=== PATIENT | female | born 1985 | race Two or more races ===

== ENCOUNTER 2017-10-16 19:45 | Emergency (ER) | payer SELFPAY ==
[2017-10-16 20:05] LABS: URINE HCG POC HCG NEGATIVE (Negative)
[2017-10-16 20:22] LABS: ADD MAN DIFF? NO
[2017-10-16 20:25] LABS: BASO % 0 % (0-3); EOS # 0.1 x10^3/uL (0.0-0.7); EOS % 2 % (0-3); HEMATOCRIT 38.3 % (36.0-47.0); HEMOGLOBIN 12.9 g/dL (12.0-15.5); LYMPH # 3.6 x10^3/uL (1.0-4.8); LYMPH % 52 % (24-48); MEAN CORPUSCULAR HEMOGLOBIN 29 pg (25-35); MEAN CORPUSCULAR HGB CONC 34 g/dL (31-37); MEAN CORPUSCULAR VOLUME 86 fL (79-100); MONO # 0.4 x10^3/uL (0.0-1.1); MONO % 6 % (0-9); NEUT # 2.7 x10^3uL (1.8-7.7); NEUT % 40 % (31-73); PLATELET COUNT 247 x10^3/uL (140-400); RED BLOOD COUNT 4.43 x10^6/uL (3.50-5.40); RED CELL DISTRIBUTION WIDTH 13.1 % (11.5-14.5); WHITE BLOOD COUNT 6.8 x10^3/uL (4.0-11.0)
[2017-10-16] MEDS: KETOROLAC 15 MG/ML VIAL. IV ×2 (20:31)
[2017-10-16] MEDS: IV NORMAL SALINE 1000ML BAG 1,000 ML IV ×2 (20:31)
[2017-10-16] MEDS: ONDANSETRON PF 4 MG/2 ML VIAL. IV ×2 (20:31)
[2017-10-16 20:32] LABS: BILIRUBIN,URINE NEGATIVE (NEG); CLARITY,URINE CLEAR; COLOR,URINE YELLOW; GLUCOSE,URINE NEGATIVE (NEG); NITRITE,URINE NEGATIVE (NEG); PH,URINE 8.5; PROTEIN,URINE NEGATIVE (NEG-TRACE)
[2017-10-16 20:38] LABS: ANION GAP 10 (6-14); BLOOD UREA NITROGEN 10 mg/dL (7-20); BUN/CREATININE RATIO 10 (6-20); CALCIUM 9.1 mg/dL (8.5-10.1); CARBON DIOXIDE 26 mmol/L (21-32); CHLORIDE 106 mmol/L (98-107); GFR 64.7; GLUCOSE 93 mg/dL (70-99); POTASSIUM 3.4 mmol/L (3.5-5.1); SODIUM 142 mmol/L (136-145)
[2017-10-16 20:44] LABS: ALBUMIN 3.8 g/dL (3.4-5.0); ALK PHOS 53 U/L (46-116); ALT (SGPT) 23 U/L (14-59); AST (SGOT) 17 U/L (15-37); LIPASE 178 U/L (73-393); TOTAL BILIRUBIN 0.4 mg/dL (0.2-1.0); TOTAL PROTEIN 7.6 g/dL (6.4-8.2)
[2017-10-16 20:46] LABS: BACTERIA,URINE 0 /HPF (0-FEW); RBC,URINE 0 /HPF (0-2); SQUAMOUS EPITHELIAL CELL,UR MOD /LPF
== END 2017-10-17 00:51 | disposition home or self-care (01) ==
LOC: ER 10-17 00:51
DX: K80.50 Calculus of bile duct without cholangitis or cholecystitis without obstruction (principal)
CPT/HCPCS: 36415; 76705; 80053; 81001; 81025; 83690; 85025; 96361; 96374; 96375; 99285-25; J1885; J2405; J7030

== ENCOUNTER 2018-01-23 16:39 | Emergency (ER) | payer SELFPAY ==
[2018-01-23 17:02] LABS: URINE HCG POC HCG NEGATIVE (Negative)
[2018-01-23 17:03] LABS: BILIRUBIN,URINE NEGATIVE (NEG); CLARITY,URINE CLEAR; COLOR,URINE YELLOW; GLUCOSE,URINE NEGATIVE (NEG); NITRITE,URINE NEGATIVE (NEG); PROTEIN,URINE NEGATIVE (NEG-TRACE); UROBILINOGEN,URINE 0.2 mg/dL (0.2 mg/dL)
[2018-01-23 17:08] LABS: BACTERIA,URINE FEW /HPF (0-FEW); SQUAMOUS EPITHELIAL CELL,UR MANY /LPF
[2018-01-23] MEDS: LIDO:MAALOX 1:1 20 ML SINGLE DOSE. SWSW (17:20)
== END 2018-01-23 17:26 | disposition home or self-care (01) ==
LOC: ER 16:39
DX: K29.50 Unspecified chronic gastritis without bleeding (principal)
CPT/HCPCS: 81001; 81025; 87086; 99284

== ENCOUNTER 2020-05-29 21:10 | Emergency (ER) | payer SELFPAY ==
[~2020-05-29] VITALS: Ht 154.9 cm; Wt 71.0 kg
[~2020-05-29 21:10] MED LIST: HYDR30CR61 TP; HYOS0.1265 SL; NITR100C62 PO; ONDA4TAB10 SL; RANI300T3 PO
--- NOTE | 2020-05-29 21:44 | PHYS DOC ---
Past Medical History Past Medical History: No Pertinent History Additional Past Medical Histor: PREECLAMPSIA (ALICE WEINBERG BRICKLAYER APPRENTICE) Past Surgical History: (ALICE WEINBERG BRICKLAYER APPRENTICE) Smoking Status: Never Smoker Alcohol Use: None Drug Use: None (ALICE WEINBERG APRN) General Adult EDM: Chief Complaint: ANXIETY/PANIC ATTACK HPI: HPI: Patient is a 34 year old female who presents with was just sitting not doing anything specific when she began feeling a heat over the left side of her head, sharp stabbing pain in the left side of the head, numbness and bilateral blurred vision. Patient states this is the worst headache she is ever had. Patient states that she began having some anxiety. She denies radiation of the pain. Patient states she has a history of preeclampsia. She states she takes no medications daily. She denies smoking, drug use, alcohol use. Patient denies focal weakness, chest pain, shortness of air, abdominal pain, nausea, vomiting, diarrhea, fever, cough, loss of vision. (ALICE WEINBERG BRICKLAYER APPRENTICE) Review of Systems: Review of Systems: Constitutional: Denies fever or chills. [] Eyes: Positive for bilateral blurred change in visual acuity. [] HENT: Denies nasal congestion or sore throat. [] Respiratory: Denies cough or shortness of breath. [] Cardiovascular: Denies chest pain or edema. [] GI: Denies abdominal pain, nausea, vomiting, bloody stools or diarrhea. [] : Denies dysuria. [] Musculoskeletal: Denies back pain or joint pain. Positive for left back of neck slight pain [] Integument: Denies rash. [] Neurologic: Positive for headache, positive for dizziness, denies focal weakness or sensory changes. [] Endocrine: Denies polyuria or polydipsia. [] Lymphatic: Denies swollen glands. [] Psychiatric: Denies depression. Positive for anxiety. [] (ALICE WEINBERG BRICKLAYER APPRENTICE) Heart Score: Risk Factors: Risk Factors: DM, Current or recent (<one month) smoker, HTN, HLP, family history of CAD, obesity. Risk Scores: Score 0 - 3: 2.5% MACE over next 6 weeks - Discharge Home Score 4 - 6: 20.3% MACE over next 6 weeks - Admit for Clinical Observation Score 7 - 10: 72.7% MACE over next 6 weeks - Early Invasive Strategies (ALICE WEINBERG BRICKLAYER APPRENTICE) Allergies: Allergies: Allergies Coded Allergies Type Severity Reaction Last Updated Verified No Known Drug Allergies 07/19/17 No (ALICE WEINBERG APRN) Physical Exam: PE: Constitutional: Well developed, well nourished, no acute distress, non-toxic appearance. [] HENT: Normocephalic, atraumatic, bilateral external ears normal, oropharynx moist, no oral exudates, nose normal. [] Eyes: PERRLA, EOMI, conjunctiva normal, no discharge. [] Neck: Normal range of motion, no tenderness, supple, no stridor. [] Cardiovascular:Heart rate regular rhythm, no murmur [] Lungs & Thorax: Bilateral breath sounds clear to auscultation [] Abdomen: Bowel sounds normal, soft, no tenderness, no masses, no pulsatile masses. [] Skin: Warm, dry, no erythema, no rash. [] Back: No tenderness, no CVA tenderness. [] Extremities: No tenderness, no cyanosis, no clubbing, ROM intact, no edema. [] Neurologic: Alert and oriented X 3, normal motor function, normal sensory function, no focal deficits noted. [] Psychologic: Anxious, affect normal, judgement normal, mood normal. [] (ALICE WEINBERG BRICKLAYER APPRENTICE) PE: Alert and oriented, no meningeal signs, moves all extremities no focal weakness or numbness. (ALIVIA TELLEZ MD) Current Patient Data: Labs: Laboratory Tests Test 05/29/20 21:55 05/29/20 22:45 05/29/20 23:04 White Blood Count 5.3 x10^3/uL Red Blood Count 4.34 x10^6/uL Hemoglobin 12.8 g/dL Hematocrit 37.2 % Mean Corpuscular Volume 86 fL Mean Corpuscular Hemoglobin 30 pg Mean Corpuscular Hemoglobin Concent 34 g/dL Red Cell Distribution Width 12.4 % Platelet Count 228 x10^3/uL Neutrophils (%) (Auto) 39 % Lymphocytes (%) (Auto) 53 % Monocytes (%) (Auto) 7 % Eosinophils (%) (Auto) 2 % Basophils (%) (Auto) 0 % Neutrophils # (Auto) 2.1 x10^3/uL Lymphocytes # (Auto) 2.8 x10^3/uL Monocytes # (Auto) 0.4 x10^3/uL Eosinophils # (Auto) 0.1 x10^3/uL Basophils # (Auto) 0.0 x10^3/uL Prothrombin Time 13.3 SEC Prothromb Time International Ratio 1.1 Sodium Level 142 mmol/L Potassium Level 3.2 mmol/L Chloride Level 105 mmol/L Carbon Dioxide Level 27 mmol/L Anion Gap 10 Blood Urea Nitrogen 10 mg/dL Creatinine 1.1 mg/dL Estimated GFR (Cockcroft-Gault) 57.2 BUN/Creatinine Ratio 9 Glucose Level 117 mg/dL Calcium Level 8.8 mg/dL Total Bilirubin 0.6 mg/dL Aspartate Amino Transf (AST/SGOT) 24 U/L Alanine Aminotransferase (ALT/SGPT) 26 U/L Alkaline Phosphatase 69 U/L Total Protein 7.3 g/dL Albumin 3.8 g/dL Albumin/Globulin Ratio 1.1 Urine Opiates Screen Neg Urine Methadone Screen Neg Urine Barbiturates Neg Urine Phencyclidine Screen Neg Urine Amphetamine/Methamphetamine Neg Urine Benzodiazepines Screen Neg Urine Cocaine Screen Neg Urine Cannabinoids Screen Neg Urine Ethyl Alcohol Neg Bedside Urine HCG, Qualitative Hcg negative Current Medications Medications (Trade) Dose Ordered Sig/Tisha Route PRN Reason Start Time Stop Time Status Last Admin Dose Admin Prochlorperazine Edisylate (Compazine) 10 mg 1X ONCE IV 05/29/20 21:45 05/29/20 21:46 DC 05/29/20 21:57 Dexamethasone Sodium Phosphate (Decadron) 10 mg 1X ONCE IV 05/29/20 21:45 05/29/20 21:46 DC 05/29/20 21:57 Fentanyl Citrate (Fentanyl 2ml Vial) 25 mcg 1X ONCE IVP 05/29/20 21:45 05/29/20 21:46 DC 05/29/20 21:56 Diphenhydramine HCl (Benadryl) 25 mg 1X ONCE IVP 05/29/20 21:45 05/29/20 21:46 DC 05/29/20 21:57 Ketorolac Tromethamine (Toradol 15mg Vial) 15 mg 1X ONCE IVP 05/30/20 00:00 05/30/20 00:01 DC 05/30/20 00:08 Vital Signs: Vital Signs Date Time Temp Pulse Resp B/P (MAP) Pulse Ox O2 Delivery O2 Flow Rate FiO2 05/29/20 21:56 22 Room Air 05/29/20 21:22 98.2 98 22 140/77 (98) 100 Room Air 98.2 (ALIVIA TELLEZ MD) EKG: EKG: [] (ALICE WEINBERG APRN) Radiology/Procedures: Radiology/Procedures: [] (ALICE WEINBERG APRN) Radiology/Procedures: [facility] [address] [place] [address] IMAGING REPORT Signed PATIENT: GRISELDA MENDENHALL DACCOUNT: [id number] : 1985 LOCATION: ER AGE: 34 SEX: F EXAM STATUS: REG ER ORD. PHYSICIAN: ALICE WEINBERG APRN REASON: HEADACHE PROCEDURE: CT HEAD WO CONTRAST CT HEAD INDICATION: Headache COMPARISON: None Available. Exposure: One or more of the following individualized dose reduction techniques were utilized for this examination: 1. Automated exposure control 2. Adjustment of the mA and/or kV according to patient size 3. Use of iterative reconstruction technique TECHNIQUE: 5 mm contiguous axial images were obtained from the skull base to the vertex in both bone and soft tissue algorithm. FINDINGS: No abnormal attenuation within the brain parenchyma. No evidence of acute intracranial hemorrhage. No extra-axial fluid collections. No mass effect or midline shift. Ventricular size is appropriate. Basal cisterns are patent. No fractures identified.Schuster-white differentiation is preserved.Globes and orbits are within normal limits. Paranasal sinuses and mastoid air cells are clear. IMPRESSION: No acute intracranial findings. Electronically signed by: Everton Castaneda MD (05/29/2020 11:30 PM) [id number] DICTATED and SIGNED BY: EVERTON CASTANEDA MD DATE: 05/29/20 457 (ALIVIA TELLEZ MD) Course & Med Decision Making: Course & Med Decision Making Pertinent Labs and Imaging studies reviewed. (See chart for details) Alert and oriented x4. Speaks in full clear sentences. Ambulatory with a steady gait. PERRLA. Moving all extremities equally with equal strengths. States that she does have slight pain to her left side of her neck towards the back. She does not have any tenderness to her head with palpation. Patient was given fentanyl, Decadron, Compazine, Benadryl and she states her pain is down to a 6 out of 10. She states that the only symptom she has is some tingling sensation to that left side of her head. She reports that her pain is down to a 6 and she is feeling better. She denies any other symptoms at this time. Patient remains alert and oriented with stable vital signs. 2328 and patient is signed off to Dr. Tellez. [] (ALICE WEINBERG APRN) Course & Med Decision Making I have personally interviewed and examined patient. All charts, labs and imaging studies were reviewed. I agreed with the PA/FIELD IRRIGATION WORKER's findings, exam and plan of care 34-year-old female presents with a headache and anxiety after the headache began. Patient has a normal neurological exam and no meningeal signs and a negative head CT and symptoms are much better. Doubt intracranial hemorrhage. On my reassessment at 12:10 AM patient states her headache is much improved. CT is negative and she will get Toradol and patient stable for discharge return precautions given. (ALIVIA TELLEZ MD) Dragon Disclaimer: Dragon Disclaimer: This electronic medical record was generated, in whole or in part, using a voice recognition dictation system. (ALICE WEINBERG APRN) Departure Departure Impression: Primary Impression: Headache Disposition: 01 HOME, SELF-CARE Condition: STABLE Referrals: NO PCP (PCP) ALEXANDR STEELE MD 2-3 DAYS Patient Instructions: General Headache Without Cause Additional Instructions: EMERGENCY DEPARTMENT GENERAL DISCHARGE INSTRUCTIONS THANK YOU for coming to [facility] Emergency Department (ED) today and trusting us with your care. We trust that you had a positive experience in our Emergency Department. If you wish to speak to the department Management you can contact the history department chair at . YOUR FOLLOW UP INSTRUCTIONS ARE FOLLOWS: Do you have a private doctor? If you do not have a private doctor, please ask for a resource list of physicians or clinics that may be able to assist you with follow up care. The Emergency Physician has interpreted your x-rays. The X-ray specialist will also review them. If there is a change in the findings you will be notified in 48 hours when at all possible. A lab test or lab culture may have been done, your results will be reviewed and you will be notified if you need a change in treatment. ADDITIONAL INSTRUCTIONS AND INFORMATION Your care today has been supervised by a physician who is specially trained in emergency care. Many problems require more than one evaluation for a complete diagnosis and treatment. We recommend that you schedule your follow up appointment as recommended to ensure complete treatment of your illness or injury. If you are unable to obtain follow up care and continue to have a problem, or if your condition worsens we recommend that you return to the ED. We are not able to safely determine your condition over the phone nor are we able to give sound medical advice over the phone. For these safety reasons, if you call for medical advice we will ask you to come to the ED for further evaluation If you have any questions regarding these discharge instructions please call the ED at . SAFETY INFORMATION In the interest of safety, wellness, and injury prevention; we encourage you to wear your seatbelt, if you smoke; quit smoking, and we encourage your family to use protective helmet for bicycling and other sporting events that present an increased risk for head injury. IF YOUR SYMPTOMS WORSEN OR NEW SYMPTOMS DEVELOP, OR YOU HAVE CONCERNS ABOUT YOUR CONDITION; OR IF YOUR CONDITION WORSENS WHILE YOU ARE WAITING FOR YOUR FOLLOW UP APPOINTMENT; EITHER CONTACT YOUR PRIMARY CARE DOCTOR, THE PHYSICIAN WHOSE NAME AND NUMBER YOU WERE GIVEN, OR RETURN TO THE ED IMMEDIATELY. Scripts Prochlorperazine Maleate (Compazine) 10 Mg Tablet 1 TAB PO Q6HRS PRN for HEADACHE for 15 Days, #60 TAB 0 Refills Prov: ALIVIA TELLEZ MD 05/30/20 Justicifation of Admission Dx: Justifications for Admission: Justification of Admission Dx: N/A (ALICE WEINBERG APRN) Justification of Admission Dx: N/A (ALIVIA TELLEZ MD) ALICE WEINBERG APRN May 29, 2020 21:44 ALIVIA TELLEZ MD May 30, 2020 00:14
[2020-05-29] MEDS ORDERED: PROCHLORPERAZINE 10 MG/2 ML VIAL. IV ONE (21:45)
[2020-05-29] MEDS ORDERED: fentaNYL PF VIAL 100 MCG/2 ML VIAL IVP ONE (21:45)
[2020-05-29] MEDS ORDERED: diphenhydrAMINE 50 MG/ML VIAL IVP ONE (21:45)
[2020-05-29] MEDS ORDERED: DEXAMETHASONE SOD PHOS 20 MG/5 ML VIAL. IV ONE (21:45)
[2020-05-29 22:14] LABS: BASO % 0 % (0-3); EOS # 0.1 x10^3/uL (0.0-0.7); EOS % 2 % (0-3); HEMATOCRIT 37.2 % (36.0-47.0); HEMOGLOBIN 12.8 g/dL (12.0-15.5); LYMPH # 2.8 x10^3/uL (1.0-4.8); LYMPH % 53 % (24-48); MEAN CORPUSCULAR HEMOGLOBIN 30 pg (25-35); MEAN CORPUSCULAR HGB CONC 34 g/dL (31-37); MEAN CORPUSCULAR VOLUME 86 fL (79-100); MONO # 0.4 x10^3/uL (0.0-1.1); MONO % 7 % (0-9); NEUT # 2.1 x10^3/uL (1.8-7.7); NEUT % 39 % (31-73); PLATELET COUNT 228 x10^3/uL (140-400); RED BLOOD COUNT 4.34 x10^6/uL (3.50-5.40); RED CELL DISTRIBUTION WIDTH 12.4 % (11.5-14.5); WHITE BLOOD COUNT 5.3 x10^3/uL (4.0-11.0)
[2020-05-29 22:24] LABS: CALCIUM 8.8 mg/dL (8.5-10.1); CREATININE 1.1 mg/dL (0.6-1.0); GFR 57.2; POTASSIUM 3.2 mmol/L (3.5-5.1)
[2020-05-29 22:29] LABS: PROTHROMBIN TIME PATIENT 13.3 SEC (11.7-14.0)
[2020-05-29 22:30] LABS: ALBUMIN 3.8 g/dL (3.4-5.0); ALBUMIN/GLOBULIN RATIO 1.1 (1.0-1.7); TOTAL BILIRUBIN 0.6 mg/dL (0.2-1.0); TOTAL PROTEIN 7.3 g/dL (6.4-8.2)
[2020-05-29 23:12] LABS: AMPHETAMINE/METHAMPHETAMINE NEG (NEG); BARBITURATES NEG (NEG); BENZODIAZEPINES NEG (NEG); CANNABINOIDS NEG (NEG); COCAINE NEG (NEG); METHADONE NEG (NEG); OPIATES NEG (NEG); PHENCYCLIDINE NEG (NEG)
--- NOTE | 2020-05-29 23:34 | RAD ---
CT HEAD INDICATION: Headache COMPARISON: None Available. Exposure: One or more of the following individualized dose reduction techniques were utilized for this examination: 1. Automated exposure control 2. Adjustment of the mA and/or kV according to patient size 3. Use of iterative reconstruction technique TECHNIQUE: 5 mm contiguous axial images were obtained from the skull base to the vertex in both bone and soft tissue algorithm. FINDINGS: No abnormal attenuation within the brain parenchyma. No evidence of acute intracranial hemorrhage. No extra-axial fluid collections. No mass effect or midline shift. Ventricular size is appropriate. Basal cisterns are patent. No fractures identified.Schuster-white differentiation is preserved.Globes and orbits are within normal limits. Paranasal sinuses and mastoid air cells are clear. IMPRESSION: No acute intracranial findings. Electronically signed by: Everton Castaneda MD (05/29/2020 11:30 PM) [id number]
[2020-05-30] MEDS ORDERED: KETOROLAC 15 MG/ML VIAL. IVP ONE
[2020-05-30] MEDS ORDERED: PROC10TA57 PO (00:13)
[2020-05-30 00:25] VITALS: BP 119/78
== END 2020-05-30 00:32 | disposition home or self-care (01) ==
LOC: ER 21:10
DX: R51 Headache (principal); H53.8 Other visual disturbances; R20.2 Paresthesia of skin; Z98.890 Other specified postprocedural states
CPT/HCPCS: 36415; 70450; 80053; 80307; 81025; 85025; 85610; 96374; 96375; 99284; J0780; J1100; J1200; J1885; J3010